=== PATIENT | male | born 1940 | race Caucasian/White ===

== ENCOUNTER 2017-06-06 21:46 | Emergency (ER) | payer OTHER ==
[~2017-06-06] VITALS: Ht 182.9 cm; Wt 150.0 kg
[~2017-06-06 21:46] MED LIST: CA CHLORIDE 10% 10 ML SYRINGE ONE; EPINEPHrine 0.1 MG/ML SYG ONE; NA BICARBONATE 8.4% 50 ML SYG ONE
[2017-06-06 21:50] VITALS: Ht 182.9 cm; Wt 150.0 kg
[2017-06-06] MEDS ORDERED: WARF2TAB PO (22:07)
[2017-06-06] MEDS ORDERED: SPIR25TA PO (22:08)
[2017-06-06] MEDS ORDERED: NPH,100V SQ (22:09)
[2017-06-06] MEDS ORDERED: INSU100V3 IJ (22:10)
--- NOTE | 2017-06-06 22:10 | ERA ---
ER Documentation Chief Complaint Date/Time DATE: 06/06/17 TIME: 22:07 Chief Complaint Cardiac Arrest HPI This is a 76-year-old male with a past medical history of diabetes, hypertension , cardiac disease, on oxygen at home, on Coumadin who is presenting in cardiac arrest. The patient's was with the patient when he collapsed. The patient reportedly got up to go watch his show when he suddenly collapsed in the kitchen. The patient's came to his side but she was unable to arouse him. She went to multiple neighbors homes, but nobody seemed to be home to help her. She finally flagged down a bystander who was driving in the area. He called the paramedics and started CPR. Unfortunately 10 or 15 minutes may have passed prior to CPR initiation. The paramedics report that CPR had been initiated prior to their arrival. Upon arrival, the patient was in asystole. There are was continued by the paramedics. The patient was given a dose of epinephrine immediately and he did appear to have return of spontaneous circulation. However, this was short-lived and the patient went into a PEA arrest 1-2 minutes later. The patient received 3 additional doses of epinephrine in addition to calcium and bicarbonate prior to arrival. The patient's rhythm did not change. The patient was being coded for a total of 30 minutes prior to arrival to the emergency department. Review of systems is limited secondary to the critical nature of the patient as well as his unresponsiveness. ROS Omitted secondary to patient's critical nature and unresponsiveness. Medications Home Meds Reported Medications Furosemide* (Furosemide*) 40 Mg Tablet, 80 MG PO QAM, TAB NEEDED 06/06/17 Insulin Regular, Human (Humulin R) 100 Unit/1 Ml Vial, 10 UNIT IJ BEFORE DINNER , VIAL 06/06/17 Insulin NPH Human Isophane (Humulin N) 100 Unit/1 Ml Vial, 80 UNIT SQ BID, VIAL 06/06/17 Spironolactone* (Aldactone*) 25 Mg Tablet, 12.5 MG PO QAM, #30 TAB 06/06/17 Warfarin Sodium* (Coumadin*) 2 Mg Tablet, 2 MG PO DIRECTED, TAB 06/06/17 Allergies Allergies: Coded Allergies: aspirin (Unverified Allergy, Unknown, 06/06/17) pioglitazone (Unverified Allergy, Unknown, 06/06/17) PMhx/Soc Unable to obtain full history secondary to the patient being in cardiac arrest Hx Cardiac Disorders: Yes (HTN, Cardiac Disease) Hx Miscellaneous Medical Probl: Yes (Diabetes, BLE edema) FmHx Unable to obtain secondary to the patient being in cardiac arrest Physical Exam Vitals Please see code sheet for full evaluation of vital signs. Code sheet was reviewed by me. Patient was in asystole, pulseless, requiring bag valve mask ventilation with no spontaneous respirations Physical Exam Const: Severe distress secondary to cardiac arrest Head: Atraumatic, cephalic Eyes: Normal Conjunctiva, pupils were fixed and mid dilated ENT: Normal External Ears, Nose. Patient was intubated with dry mucous membranes. Neck: Trachea midline Resp: Coarse but symmetric breath sounds with bag valve mask ventilation. Cardio: Pulseless. No heart sounds Abd: Soft, non tender. Distended/morbidly obese. No breath sounds in the epigastrium Skin: No petechiae or rashes Ext: No cyanosis. Bilateral lower extremity edema with wrapped legs with Holger bandages. Neur: GCS 3. No spontaneous movement. No movement to pain or stimulation. Patient flaccid. Procedures/MDM MDM The patient presented in cardiac arrest. He had already received 1 round of epinephrine, calcium and sodium bicarbonate with only transient return of spontaneous circulation. The patient was initially in asystole, which was converted to return of spontaneous circulation for 1-2 minutes after the first dose of epinephrine, but the patient went pulseless. Unfortunately, it appears that the patient was down for at least 10-15 minutes without any CPR being performed. I have high suspicion for a cardiac arrest in this patient. In speaking with the family, he had significant cardiac disease. Upon arrival to the emergency department, ACLS protocol was maintained. CPR was transitioned smoothly from the regional production manager crew to the emergency department staff without any stops. The patient was given several rounds of epinephrine. He was also given additional rounds of calcium and bicarbonate. At one point, his rhythm changed to a ventricular tachycardia and the patient was defibrillated at 200 J. The patient was coded for an additional 13 minutes in the emergency department for a total of approximately 40-45 minutes. Despite aggressive resuscitative measures, we were unable to achieve return of spontaneous circulation. The patient's pupils were fixed and mid dilated. He had no spontaneous breaths. He was pulseless. He had no discernible heartbeat on auscultation. An ultrasound was performed to evaluate for any cardiac activity. The ultrasound demonstrated cardiac standstill. The healthcare team was asked if there was any other interventions that they would recommend before ending resuscitative measures, but no one had any further additional thoughts. I felt that this time that further intervention would not change the outcome and I called the time of . EKG EKG read by me: Rate/Rhythm: Fine V. fib LABS-deferred secondary to acuity of situation. IMAGING-Deferred secondary to acuity of situation. TREATMENT/DISPOSITION The patient unfortunately succumbed despite aggressive resuscitative measures. The flash drier operator was notified who felt that this was not a flash drier operator's case given the patient's significant cardiac history. The patient is not eligible for organ donation secondary to his age. The patient's family does have a home. The contact information will be provided to the nurse. The patient's family arrived after the patient had . I spoke to the family in depth about what it happened and they expressed understanding and gratitude for helping the patient. I offered my condolences and offered to return if they had any additional questions. Critical Care Time: 30 minutes Treatments/Evaluations: Close monitoring and treatment of unstable vital signs, cardiorespiratory, and neurologic status, while maintaining tight balance of fluid, respiratory, and cardiac interventions. This time includes discussing the case with the patient and the patient's family. This time does not include all procedures stated elsewhere in this record. This time also includes reviewing old records, labs and radiological studies. This time includes examining and re-examining the patient. Additionally, this time also includes arranging care with admitting and consulting physicians. Departure Diagnosis: Primary Impression: Cardiac arrest Condition: Critical MANOLO ARREDONDO MD Jun 06, 2017 22:10
[2017-06-06] MEDS ORDERED: FURO40TA4 PO (22:12)
== END 2017-06-06 21:58 | disposition expired ==
LOC: E/R 21:46
DX: I46.9 Cardiac arrest, cause unspecified (principal); I10 Essential (primary) hypertension; E11.9 Type 2 diabetes mellitus without complications; Z79.01 Long term (current) use of anticoagulants; Z79.4 Long term (current) use of insulin
CPT/HCPCS: 92950; 99291; J0171